=== PATIENT | female | born 1960 | race Caucasian/White ===

== ENCOUNTER 2017-12-31 12:30 | Emergency (ER) | payer OTHER ==
[~2017-12-31] VITALS: Ht 162.6 cm; Wt 84.5 kg
[~2017-12-31 12:30] MED LIST: NOHOMEMEDS
[2017-12-31 12:59] LABS: HEMATOCRIT 44.7 % (36.0-46.0); HEMOGLOBIN 15.4 G/DL (11.9-15.5); MCH 29.8 PG (29.0-34.0); MCHC 34.5 G/DL (30.0-36.0); MCV 86.5 FL (83-99); PLATELET COUNT 261 K/uL (156-360); RBC DIS.WIDTH-CV 13.2 % (11.8-14.6); RBC DIS.WIDTH-SD 41.6 % (39-53); RED BLOOD COUNT 5.17 M/uL (3.80-5.20); WHITE BLOOD COUNT 5.9 K/uL (4.1-10.2)
[2017-12-31 13:08] LABS: CHLORIDE 102 mEq/L (99-109); POTASSIUM 3.9 mEq/L (3.7-5.4); SODIUM 137 mEq/L (136-147)
[2017-12-31 13:09] LABS: GLUCOSE 99 mg/dL (70-99)
[2017-12-31 13:13] LABS: CREATININE 0.7 mg/dL (0.6-1.3); GFR ESTIMATE (CALCULATED) > 59 mL/min/
[2017-12-31 13:14] LABS: UREA NITROGEN (BUN) 14 mg/dL (9-23)
[2017-12-31 13:19] LABS: TROP-I INTERPRETATION NEGATIVE; TROPONIN-I < 0.01 ng/mL (0.0-0.30)
[2017-12-31 14:16] VITALS: BP 145/73
== END 2017-12-31 14:18 | disposition home or self-care (01) ==
LOC: EME 12:30
PROVIDERS: Nurse Practitioner Family
DX: G56.02 Carpal tunnel syndrome, left upper limb (principal); R20.2 Paresthesia of skin; T50.996A Underdosing of other drugs, medicaments and biological substances, initial encounter; Z91.14 Patient's other noncompliance with medication regimen; I10 Essential (primary) hypertension; E78.5 Hyperlipidemia, unspecified
CPT/HCPCS: 71046; 80048; 84484; 85027; 93005; 99281; 99284